=== PATIENT | male | born 1985 | race Caucasian/White ===

== ENCOUNTER 2023-11-06 07:12 | Day surgery (SDC) | payer OTHER ==
[2023-11-06] MEDS: LACTATED RINGERS 1,000 ML IV ONE (07:18)
[2023-11-06] MEDS ORDERED: LIDOCAINE-MPF 1% 30 ML VIAL ONE (07:20)
[2023-11-06] MEDS ORDERED: LIDOCAINE-PF 2% 10 ML AMP SUBQ ONE (07:58)
[2023-11-06] MEDS ORDERED: MIDAZOLAM 2 MG/2 ML VIAL ONE (07:58)
[2023-11-06] MEDS ORDERED: PROPOFOL 500 MG/50 ML 500 MG/50 ML VIAL ONE (07:59)
[2023-11-06] MEDS ORDERED: fentaNYL 100 MCG/2 ML VIAL ONE (08:04)
--- NOTE | 2023-11-06 08:18 | ANESTHESIA ---
Pre-Anesthesia VS, & Labs - Diagnosis desires sterilization - Procedure vasectomy Vital Signs: Temp Pulse Resp BP Pulse Ox O2 Flow Rate 36.1 C L 72 12 132/81 H 99 11/06/23 07:28 11/06/23 07:28 11/06/23 07:28 11/06/23 07:28 11/06/23 07:28 Height: 5 ft 10 in Weight (kg): 76.6 kg Body Mass Index: 24.2 BMI Classification: Normal - NPO >8 hours Home Medications and Allergies Home Medications: Ambulatory Orders Zolpidem Tartrate [Ambien] 10 mg PO QPM 11/02/23 Zolpidem Tartrate [Ambien] 10 mg PO QPM 11/02/23 Allergies/Adverse Reactions: Allergies Allergy/AdvReac Type Severity Reaction Status Date / Time No Known Drug Allergies Allergy Verified 11/02/23 11:12 Anes History & Medical History - Anesthetic History Anesthesia Complications: reports: No previous complications Family history of Anesthesia Complications: Denies Family history of Malignant Hyperthermia: Denies - Medical History Cardiovascular: reports: None Pulmonary: reports: None Gastrointestinal: reports: None Urinary: reports: None Musculoskeletal: reports: Chronic back pain Endocrine/Autoimmune: reports: None Skin: reports: None Smoking Status: Never smoker Psychosocial: reports: Anxiety, Alcohol, Cannabis, Other (ADHD) - Surgical History Orthopedic: reports: Arthroscopic surgery Exam General: Alert, Oriented x3, Cooperative Dental: WNL, Other (prominent incisors) Mouth Openin Fingerbreadth Mallampati classification: II Thyromental Distance: 4-6 cm Respiratory: Lungs clear Cardiovascular: Regular rate Plan Anesthesia Type: General, Total IV Consent for Procedure(s) Verified and Reviewed: Yes Code Status: Attempt Resuscitation ASA classification: 2-Mild systemic disease Is this case an emergency?: No
[2023-11-06] MEDS: LIDOCAINE-MPF 1% 30 ML VIAL IM ONE (08:24)
--- NOTE | 2023-11-06 08:37 | Discharge Plan ---
Discharge Plan Problem Reviewed?: Yes Disposition: Home, Self Care Condition: Good Diet: Regular Activity Restrictions: Additional Comments (as instructed) Shower Restrictions: No Driving Restrictions: No Instruction Topics: Vasectomy No Scalpel Additional Instructions or Follow Up instructions: You must use secondary contraceptive (eg condoms) for now After three months, contact Dr Allred's office to arrange for you to drop off a semen sample at a lab to confirm no more sperm No Smoking: If you smoke, Please STOP! Call for help. Follow-up with: Belkis Gutierrez ARNP [Primary Care Provider] -
--- NOTE | 2023-11-06 08:38 | OPERATIVE REPORT ---
Operative Report - General Procedure Date: 11/06/23 Planned Procedure: bilateral vasectomy Pre-Op Diagnosis: elective sterilization Procedure Performed: bilateral vasectomy Post Op Diagnosis: elective sterilization - Procedure Note Primary Surgeon: Chalino Anesthesia Provider: KELLI Leigh Anesthesia Technique: MAC Pathology: none Estimated Blood Loss (mL): 0 Findings: Routine vasectomy - Other Other Information/Narrative: After informed consent obtained patient brought to the OR and laid in supine position. The patient was anesthetized per anesthesia protocols and then prepped and draped in usual sterile fashion. A formal timeout was performed reconfirming the patient, procedure and laterality He is vas deferens identified through his right hemiscrotum. 1% lidocaine was used as local. Using a sharp mosquito is scrotal tissue was dissected away and his vas sheath was grasped using a ring clamp. This was sharply incised and the vas was identified and pulled out. It was clamped on both sides and the intervening 1 cm segment was cauterized away. The ends were cauterized as well. The ends were suture-ligated with chromic suture and then the distal end was buried using a fascial interposition stitch using 3-0 chromic suture. There was no bleeding. His skin was closed using a 3-0 chromic horizontal mattress stitch. An identical procedure performed on the left side. Band-Aids were placed. This concluded the procedure and the patient tolerated the procedure well. All counts were correct. He will have a semen analysis performed in 3 months to confirm azoospermia.
[2023-11-06] MEDS: LACTATED RINGERS 750 ML IV ONE (08:39)
--- NOTE | 2023-11-06 08:50 | ANESTHESIA POST OP EVALUATION ---
Anesthesia Post Eval - Post Anesthesia Eval Vitals: Last Vital Signs Temp 36.2 C L 11/06/23 08:35 Pulse 72 11/06/23 08:35 Resp 14 11/06/23 08:35 BP 108/66 11/06/23 08:35 Pulse Ox 99 11/06/23 08:35 O2 Flow Rate CV Function Including HR & BP: Stable Pain Control: Satisfactory Nausea & Vomiting: Negative Mental Status: Baseline Respiratory Status: Airway Patent Hydration Status: Satisfactory Anesthesia Complications: None
[2023-11-06 09:05] VITALS: O2SAT 98
[2023-11-06 09:29] VITALS: BP 124/88
== END 2023-11-06 07:13 | disposition home or self-care (01) ==
LOC: SDS 07:12
PROVIDERS: ATTEND Urology
DX: Z30.2 Encounter for sterilization (principal)
CPT/HCPCS: 55250; J7120